=== PATIENT | female | born 1955 | race Caucasian/White ===

== ENCOUNTER 2020-12-20 11:48 | Emergency (ER) | payer BC ==
[2020-12-20 11:53] VITALS: TEMP 98.2
[2020-12-20 12:10] LABS: Appearance,Urine Clear (Clear); Bilirubin,Urine Negative (Negative); Blood,Urine Negative (Negative); Color,Urine Light Yellow; Glucose,Urine (UA) Negative (Negative); Ketones,Urine Negative (Negative); Leukocyte Esterase,Urine Negative (Negative); Nitrite,Urine Negative (Negative); Protein,Urine Negative (Negative); Specific Gravity,Urine 1.003 (1.001-1.035); Urobilinogen,Urine <2.0 mg/dL (<2.0)
--- NOTE | 2020-12-20 13:57 | XR ---
EXAMINATION TYPE: XR lumbar spine 2 or 3V DATE OF EXAM: 12/20/2020 COMPARISON: NONE HISTORY: Back pain TECHNIQUE: 3 views lumbar spine FINDINGS: There is dextrocurvature of the lumbar spine. Lower lumbar facet arthropathy is seen. Multilevel oste ophytosis is noted. Vertebral body heights are preserved. Vascular calcifications are present. Surgic al clips are seen in the right upper abdomen. IMPRESSION: Dextrocurvature with disc disease and osteoarthritic changes of the lumbar spine.
--- NOTE | 2020-12-20 14:17 | ED ---
Back Pain HPI - General Chief Complaint: Back Pain/Injury Stated Complaint: back pain Time Seen by Provider: 12/20/20 13:03 Source: patient Limitations: no limitations - History of Present Illness Initial Comments: Patient is a 65-year-old female presenting to emergency Department with complaints of left low back pain after she lifted someone out of the bathtub about a week and a half ago. She has been trying ibuprofen, heat to the area and gentle massage which does seem to help for a little bit but is still aggravating her so she came in for evaluation. She tried calling her primary care physician's office however he is out of town for this next week. She denies any numbness and tingling to extremities, no saddle paresthesias, no loss of bowel or bladder control. She denies any chest pain or shortness of breath. She has no further complaints at this time. She is hypertensive upon arrival however patient states she does have like syndrome, she does take medication for her blood pressure that she started a few months ago and also has a follow-up with her PCP regarding her blood pressure in 2 weeks. He denies any headache, no blurry vision, no nausea or vomiting. - Related Data Previous Rx's Medication Instructions Recorded Cyclobenzaprine [Flexeril] 5 mg PO BID #15 tablet 12/20/20 Allergies Allergy/AdvReac Type Severity Reaction Status Date / Time zolpidem [From Ambien] Allergy Hallucinati Verified 12/20/20 11:53 ons Review of Systems ROS Statement: Those systems with pertinent positive or pertinent negative responses have been documented in the HPI. ROS Other: All systems not noted in ROS Statement are negative. Past Medical History Past Medical History: Coronary Artery Disease (CAD), Hypertension, Myocardial Infarction ([place]) Additional Past Medical History / Comment(s): chronic back pain History of Any Multi-Drug Resistant Organisms: None Reported Past Surgical History: Orthopedic Surgery Additional Past Surgical History / Comment(s): lt arm Past Psychological History: No Psychological Hx Reported Smoking Status: Never smoker Past Alcohol Use History: Occasional Past Drug Use History: None Reported General Exam - General Exam Comments Initial Comments: GENERAL: Patient is well-developed and well-nourished. Patient is nontoxic and in no acute distress. HEAD: Atraumatic, normocephalic. EYES: Pupils equal round and reactive to light, extraocular movements intact, sclera anicteric, conjunctiva are normal. Eyelids were unremarkable. ENT: TMs normal, nares patent, oropharynx clear without exudates. Moist mucous membranes. NECK: Normal range of motion, supple without lymphadenopathy or JVD. LUNGS: Unlabored respirations. Breath sounds clear to auscultation bilaterally and equal. No wheezes rales or rhonchi. HEART: Regular rate and rhythm without murmurs, rubs or gallops. ABDOMEN: Soft, nontender, normoactive bowel sounds. No guarding, no rebound. No masses appreciated. : Deferred MUSCULOSKELETAL: Normal extremities with adequate strength and normal range of motion, no pitting or edema. No clubbing or cyanosis. She has some mild tenderness to the left low back. NEUROLOGICAL: Patient is alert and oriented x 3. Motor and sensory are also intact. Cranial nerves II through XII grossly intact. Symmetrical smile. Normal speech, normal gait. PSYCH: Normal mood, normal affect. SKIN: Warm, Dry, normal turgor, no rashes or lesions noted. Limitations: no limitations Course Vital Signs 12/20/20 11:49 Temperature 98.2 F Pulse Rate 73 Respiratory 20 Rate Blood Pressure 228/100 O2 Sat by Pulse 98 Oximetry Medical Decision Making - Medical Decision Making Patient is a 65-year-old female here with left low back pain for the past week and a half after lifting somebody. Patient has no acute neuro deficits on exam. 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 X-rays of the lumbar spine today shows degenerative disc disease, osteoarthritic changes, no acute fractures. I recommend patient take muscle relaxer at night, continue with Tylenol or ibuprofen at home as well as the heat and massage. I also recommended follow up with her PCP if symptoms persist. Patient's blood pressure was rechecked, it is 202/100. Patient continues to have no other symptoms, no headache or blurred vision. I discussed with her that this is a very high blood pressure and I recommend IV medications to help lower it. Patient refuses this. She states she has white coat syndrome and is typically really high in hospitals and doctors offices. She states she does have a blood pressure machine at home and she will recheck in a few hours while she is at home and resting. She also has an appointment with her doctor in 2 weeks for recheck of her blood pressure and her blood pressure medications. Patient is stable for discharge at this time. Return parameters were discussed with her and she verbalized understanding. Case discussed with Dr. Wade. - Lab Data Lab Results 12/20/20 Range/Units 11:56 Urine Color Light Yellow Urine Appearance Clear (Clear) Urine pH 7.0 (5.0-8.0) Ur Specific [place] 1.003 (1.001-1.035) Urine Protein Negative (Negative) Urine Glucose (UA) Negative (Negative) Urine Ketones Negative (Negative) Urine Blood Negative (Negative) Urine Nitrite Negative (Negative) Urine Bilirubin Negative (Negative) Urine Urobilinogen <2.0 (<2.0) mg/dL Ur Leukocyte Esterase Negative (Negative) Disposition Clinical Impression: Mechanical back pain, Muscle spasm Disposition: HOME SELF-CARE Condition: Stable Instructions (If sedation given, give patient instructions): Acute Low Back Pain (ED) Additional Instructions: Please return to the Emergency Department if symptoms worsen or any other concerns. [place] muscle relaxer at nighttime. May continue Tylenol or ibuprofen for discomfort, heat to the area and massage. Follow-up with your PCP regarding her back pain if it continues as well as high blood pressure. Prescriptions: Cyclobenzaprine [Flexeril] 5 mg PO BID #15 tablet Is patient prescribed a controlled substance at d/c from ED?: No Referrals: Phil Dotson MD [Primary Care Provider] - 1-2 days Time of Disposition: 14:17
[2020-12-20 14:49] VITALS: BP 202/100; PULSE 68; RESP 18
== END 2020-12-20 14:50 | disposition home or self-care (01) ==
LOC: EC 11:48
DX: M62.830 Muscle spasm of back (principal); I10 Essential (primary) hypertension; I25.2 Old myocardial infarction; I25.10 Atherosclerotic heart disease of native coronary artery without angina pectoris
CPT/HCPCS: 72100; 81003; 99283